=== PATIENT | female | born 1950 | race African-American/Black ===

== ENCOUNTER → 2022-12-14 13:28 | Outpatient (CLI) | payer OTHER, SELFPAY ==
--- NOTE | ~2022-12-14 | MR_ITS ---
MRI of the lumbar spine Clinical History: Radiculopathy Technique: Axial T2-weighted images, and sagittal T1-weighted, T2-weighted, and T2 fat-sat images wer e acquired. Findings: There is no fracture of the lumbar spine. Minimal grade 1 retrolisthesis of L3 over L4 note d. 7 mm anterolisthesis of L4 over L5 noted. No suspicious bone marrow signal abnormality identified. At L1-L2, there is minimal disc bulge, with facet arthropathy. No spinal canal stenosis. There is mil d bilateral neural foraminal narrowing. At L2-L3, there is disc bulge and facet arthropathy. No jovita spinal canal stenosis. There is moderat e to severe right neural foraminal narrowing and minimal left neural foraminal narrowing. At L3-L4, there is disc bulge and mild facet arthropathy. No spinal canal stenosis. There is moderate bilateral neural foraminal narrowing. At L4-L5, diffuse disc bulge and facet arthropathy result in moderate thecal sac compression/spinal c anal stenosis. There is severe bilateral neural foraminal narrowing. At L5-S1, there is minimal disc bulge with facet arthropathy. No spinal canal stenosis. There is tati re bilateral neural foraminal narrowing. Paravertebral soft tissues are unremarkable. Impression: Multifactorial moderate thecal sac compression/spinal canal stenosis at L4-L5, with severe bilateral neural foraminal narrowing at this level. Additional neural foraminal narrowing throughout the lumbar spine, as detailed above. 7 mm anterolisthesis of L4 over L5. Minimal grade 1 retrolisthesis of L3 over L4. Reviewed, dictated and finalized at [facility]. Impression: Multifactorial moderate thecal sac compression/spinal canal stenosis at L4-L5, with severe bilateral neural foraminal narrowing at this level. Additional neural foraminal narrowing throughout the lumbar spine, as detailed above. 7 mm anterolisthesis of L4 over L5. Minimal grade 1 retrolisthesis of L3 over L4.
== END ==
PROVIDERS: Visit Provider Physical Medicine & Rehabilitation
DX: M54.16 Radiculopathy, lumbar region (principal); M48.061 Spinal stenosis, lumbar region without neurogenic claudication
CPT/HCPCS: 72148